=== PATIENT | female | born 1965 | race African-American/Black ===

== ENCOUNTER 2021-05-07 20:51 | Inpatient (IN) | payer MEDICAID ==
[~2021-05-07] VITALS: Ht 162.6 cm; Wt 94.0 kg
[~2021-05-07 20:51] MED LIST: BUPR150T9 PO; FLUO20CA39 PO; LISI20TA31 PO
[2021-05-07] MEDS ORDERED: MAGNESIUM/ALUMINUM HYDROXIDE/SIMETHICONE 30ML UDC PO STA (21:19)
[2021-05-07 22:16] LABS: BASOPHILS % 0.5 % (0.0-2.0); CLARITY URINE CLOUDY (CLEAR); COLOR URINE DARK YELLOW (YELLOW); EOSINOPHILS % 0.9 % (0.0-5.0); HEMATOCRIT. 35.7 % (36.0-48.0); HEMOGLOBIN. 12.1 g/dL (12.0-16.0); KETONES URINE TRACE (NEGATIVE); LEUKOCYTE ESTERASE URINE TRACE (NEGATIVE); LYMPHOCYTES % 9.9 % (20.0-50.0); MEAN CORPUSCULAR HEMOGLOBIN 26.7 pg (28.0-32.0); MEAN CORPUSCULAR VOLUME 78.3 fL (81.0-99.0); NEUTROPHILS % 81.7 % (40.0-76.0); NITRITE URINE NEGATIVE (NEGATIVE); OCCULT BLOOD URINE NEGATIVE (NEGATIVE); PROTEIN URINE TRACE (NEGATIVE); RED BLOOD CELL COUNT 4.55 mill/uL (4.2-5.4); RED CELL DISTRIBUTION WIDTH 17.1 % (11.6-14.6); SPECIFIC GRAVITY URINE 1.029 (1.005-1.030)
[2021-05-07 22:23] LABS: CHLORIDE 103 mEq/L (98-107)
[2021-05-07 22:39] LABS: MEAN PLATELET VOLUME 8.2 fl (7.4-10.4); PLATELET 246 x1000/uL (130-400)
[2021-05-07 23:11] LABS: INR 1.1; PROTHROMBIN TIME 11.3 sec (9.6-11.0)
[2021-05-07] MEDS ORDERED: ONDANSETRON HCL 4MG/2ML INJ IV SCH (23:45)
[2021-05-07] MEDS ORDERED: MORPHINE SULFATE 4 MG/ML CPJ (NOT FOR IM USE) IV SCH (23:45)
[2021-05-08] VITALS (34 sets, daily range): BP systolic 111–144; BP diastolic 72–94
[2021-05-08] MEDS ORDERED: ACETAMINOPHEN 325MG TABLET PO ONE (00:15)
[2021-05-08] MEDS ORDERED: HEPARIN 5000 UNITS/ML VIAL IV PRN ×2 (02:00)
[2021-05-08] MEDS ORDERED: HEPARIN 5000 UNITS/ML VIAL IV SCH (02:00)
[2021-05-08] MEDS ORDERED: HEPARIN 25,000 UNITS PREMIX 250 ML IV PRN (02:00)
[2021-05-08] MEDS ORDERED: MORPHINE SULFATE 4 MG/ML CPJ (NOT FOR IM USE) IV SCH (02:15)
[2021-05-08] MEDS ORDERED: CEFTRIAXONE 1 G PREMIX 50 ML IV SCH (02:30)
[2021-05-08] MEDS ORDERED: METRONIDAZOLE 500 MG PREMIX 100 ML IV SCH (02:30)
[2021-05-08] MEDS ORDERED: HEPARIN 25,000 UNITS PREMIX 250 ML IV SCH ×3 (03:00→15:45)
[2021-05-08] MEDS ORDERED: HEPARIN 80 UNITS/KG BOLUS IV SCH (03:00)
[2021-05-08 03:06] LABS: INR 1.1; PROTHROMBIN TIME 11.5 sec (9.6-11.0)
[2021-05-08] MEDS ORDERED: IOHEXOL-300 100 ML BOTTLE ONE ×2 (06:24→12:09)
[2021-05-08] MEDS ORDERED: ONDANSETRON HCL 4MG/2ML INJ IV PRN (08:15)
[2021-05-08] MEDS ORDERED: ACETAMINOPHEN 325MG TABLET PO PRN (08:15)
[2021-05-08] MEDS ORDERED: DEXT 5%/0.9% NACL 1,000 ML IV SCH (08:15)
[2021-05-08] MEDS ORDERED: NALOXONE HCL 0.4MG/ML VIAL IV PRN (08:30)
[2021-05-08] MEDS ORDERED: AMLO5TAB88 MT (09:01)
[2021-05-08] MEDS ORDERED: PROP10TA10 PO (09:01)
[2021-05-08] MEDS: MORPHINE SULFATE 2 MG/ML CPJ (NOT FOR IM USE) IV PRN ×3 (09:12→22:19)
[2021-05-08] MEDS: BUPROPION HCL 150MG TABLET XL 24HR PO SCH (10:00)
[2021-05-08] MEDS: FLUOXETINE HCL 20MG CAPSULE PO SCH (10:00)
[2021-05-08] MEDS ORDERED: ALTEPLASE 100MG/VIAL IV ONE (10:15)
[2021-05-08] MEDS ORDERED: LIDOCAINE HCL 1% 20ML VIAL (Pyxis) INJ ONE (12:09)
[2021-05-08] MEDS ORDERED: FENTANYL CITRATE/PF 50MCG/ML 2ML VIAL IV NR ×2 (12:53→14:04)
[2021-05-08] MEDS ORDERED: FENTANYL CITRATE/PF 50MCG/ML 2ML VIAL ONE ×2 (12:53→14:04)
[2021-05-08] MEDS ORDERED: MIDAZOLAM HCL 2 MG/2 ML VIAL ONE (12:53)
[2021-05-08] MEDS ORDERED: ALTEPLASE 10 MG in SODIUM CHLORIDE 0.9% 250 ML IV SCH (13:00)
[2021-05-08] MEDS ORDERED: MIDAZOLAM HCL 5 MG/5 ML VIAL IV ONE (14:45)
[2021-05-08] MEDS ORDERED: MIDAZOLAM HCL 2 MG/2 ML VIAL IV ONE (15:00)
[2021-05-08] MEDS ORDERED: HEPARIN BOLUS PRN aPTT <36 IV (15:45)
[2021-05-08] MEDS ORDERED: HEPARIN BOLUS PRN aPTT 37-44 IV (15:45)
[2021-05-08] MEDS ORDERED: ALTEPLASE 4 MG in SODIUM CHLORIDE 0.9% 100 ML IV SCH (21:00)
[2021-05-09] VITALS (10 sets, daily range): BP systolic 106–124; BP diastolic 64–82
[2021-05-09] MEDS: MORPHINE SULFATE 2 MG/ML CPJ (NOT FOR IM USE) IV PRN ×2 (02:57→06:54)
[2021-05-09] MEDS ORDERED: ONDANSETRON HCL 4MG/2ML INJ IV PRN (08:00)
[2021-05-09] MEDS: BUPROPION HCL 150MG TABLET XL 24HR PO SCH (08:05)
[2021-05-09] MEDS: FLUOXETINE HCL 20MG CAPSULE PO SCH (08:05)
[2021-05-09] MEDS ORDERED: TRAMADOL 50MG TABLET PO PRN (09:15)
[2021-05-09] MEDS ORDERED: APIX5TAB MT (16:31)
[2021-05-09] MEDS ORDERED: *PATIENT'S OWN MEDICATION STORAGE XX SCH (17:30)
== END 2021-05-09 17:55 | disposition home or self-care (01) | DRG 246 ==
LOC: ER 20:51 → 3WST 05-08 02:35 → ENRESERV 05-08 04:31 → CVICU 05-08 12:15 → 3WST 05-08 14:48
PROVIDERS: ADMIT Internal Medicine; ATTEND Internal Medicine
DX: K55.059 Acute (reversible) ischemia of intestine, part and extent unspecified (principal); E66.9 Obesity, unspecified; Z20.822 Contact with and (suspected) exposure to COVID-19; I10 Essential (primary) hypertension; K76.9 Liver disease, unspecified; Z88.0 Allergy status to penicillin; Z88.2 Allergy status to sulfonamides; Z90.710 Acquired absence of both cervix and uterus; Z91.040 Latex allergy status; Z79.899 Other long term (current) drug therapy; Z98.84 Bariatric surgery status; Z71.51 Drug abuse counseling and surveillance of drug abuser; Z68.35 Body mass index [BMI] 35.0-35.9, adult
CPT/HCPCS: 36415; 74177; 76937; 80053; 81003; 83605; 85025; 85384; 87426; 99152; 99153; 99285; C1725; C1766; C1769; C1887; J0696; J1644; J2250; J2270; J2405; J2997; J3010; J3490; J7040; J7042; J7050; L8514; Q9967; G0500

== ENCOUNTER 2021-05-11 10:39 | Emergency (ER) | payer MEDICAID ==
[~2021-05-11] VITALS: Ht 162.6 cm; Wt 86.0 kg
[~2021-05-11 10:39] MED LIST changes: +AMLO5TAB88 MT; +APIX5TAB MT; +PROP10TA10 PO
[2021-05-11] MEDS ORDERED: MORPHINE SULFATE 4 MG/ML CPJ (NOT FOR IM USE) IV STA ×2 (11:17→11:20)
[2021-05-11 11:45] LABS: BASOPHILS % 0.5 % (0.0-2.0); EOSINOPHILS % 1.4 % (0.0-5.0); HEMATOCRIT. 27.8 % (36.0-48.0); HEMOGLOBIN. 9.3 g/dL (12.0-16.0); LYMPHOCYTES % 9.5 % (20.0-50.0); MEAN CORPUSCULAR VOLUME 77.8 fL (81.0-99.0); MEAN PLATELET VOLUME 7.4 fl (7.4-10.4); MONOCYTES % 9.6 % (2.0-8.0); PLATELET 203 x1000/uL (130-400); RED BLOOD CELL COUNT 3.57 mill/uL (4.2-5.4); RED CELL DISTRIBUTION WIDTH 16.4 % (11.6-14.6)
[2021-05-11 11:53] LABS: CHLORIDE 100 mEq/L (98-107)
[2021-05-11] MEDS ORDERED: HYDR-4001 MT (12:27)
[2021-05-11 13:09] VITALS: BP 137/74
== END 2021-05-11 13:08 | disposition home or self-care (01) ==
LOC: ER 10:39
DX: R10.9 Unspecified abdominal pain (principal); D64.9 Anemia, unspecified; E87.6 Hypokalemia; I10 Essential (primary) hypertension
CPT/HCPCS: 36415; 80053; 80307; 83605; 83690; 85025; 93005; 96374; 99284; J2270

== ENCOUNTER 2023-03-03 01:19 | Emergency (ER) | payer MEDICAID ==
[~2023-03-03] VITALS: Ht 162.6 cm; Wt 88.3 kg
[~2023-03-03 01:19] MED LIST changes: +BUPR-114 PO; -BUPR150T9 PO; +HYDR-4001 MT
[2023-03-03 01:58] VITALS: BP 162/103; PULSE 62; RESP 17; TEMP 97.8; O2SAT 100
[2023-03-03] MEDS ORDERED: CYCL5TAB MT (03:52)
[2023-03-03] MEDS ORDERED: CYCLOBENZAPRINE 10MG TABLET PO ONE (04:00)
[2023-03-03] MEDS ORDERED: KETOROLAC 30MG/ML VIAL IM ONE (04:00)
== END 2023-03-03 07:00 | disposition home or self-care (01) ==
LOC: ER 01:19
DX: S16.1XXA Strain of muscle, fascia and tendon at neck level, initial encounter (principal); S39.012A Strain of muscle, fascia and tendon of lower back, initial encounter; I10 Essential (primary) hypertension; Z88.2 Allergy status to sulfonamides; Z88.5 Allergy status to narcotic agent; Z91.040 Latex allergy status; Z79.899 Other long term (current) drug therapy; V43.62XA Car passenger injured in collision with other type car in traffic accident, initial encounter; Y93.89 Activity, other specified; Y92.89 Other specified places as the place of occurrence of the external cause; Y99.8 Other external cause status
CPT/HCPCS: 99283; 96372; J1885

== ENCOUNTER 2023-08-21 17:28 | Emergency (ER) | payer MEDICAID ==
[~2023-08-21] VITALS: Ht 162.6 cm; Wt 90.0 kg
[~2023-08-21 17:28] MED LIST changes: +CYCL5TAB MT
[2023-08-21 18:09] VITALS: BP 163/90; PULSE 89; RESP 16; TEMP 99; O2SAT 100
[2023-08-21] MEDS ORDERED: GUAI-948 MT (23:44)
== END 2023-08-22 00:16 | disposition home or self-care (01) ==
LOC: ER 18:09
DX: J06.9 Acute upper respiratory infection, unspecified (principal); R05.9 Cough, unspecified; I10 Essential (primary) hypertension; Z85.9 Personal history of malignant neoplasm, unspecified; Z79.899 Other long term (current) drug therapy; Z20.822 Contact with and (suspected) exposure to COVID-19
CPT/HCPCS: 71045; 87070; 87426; 87430; 87804; 99283

== ENCOUNTER 2023-09-18 03:27 | Emergency (ER) | payer MEDICAID ==
[~2023-09-18] VITALS: Ht 165.1 cm; Wt 187.0 kg
[~2023-09-18 03:27] MED LIST changes: +GUAI-948 MT
[2023-09-18 03:40] VITALS: BP 170/103; PULSE 77; RESP 20; TEMP 99.2; O2SAT 99
[2023-09-18] MEDS ORDERED: CLIN-116 MT (04:13)
[2023-09-18] MEDS ORDERED: HYDR-4001 MT (04:13)
[2023-09-18] MEDS ORDERED: IBUP-2029 MT (04:13)
[2023-09-18] MEDS ORDERED: KETOROLAC 30MG/ML VIAL IM ONE (04:15)
== END 2023-09-18 05:07 | disposition home or self-care (01) ==
LOC: ER 03:27
DX: K04.7 Periapical abscess without sinus (principal); I10 Essential (primary) hypertension; Z90.13 Acquired absence of bilateral breasts and nipples; Z88.0 Allergy status to penicillin; Z88.2 Allergy status to sulfonamides; Z88.5 Allergy status to narcotic agent; Z91.040 Latex allergy status
CPT/HCPCS: 99283; J1885